=== PATIENT | male | born 1980 | race Caucasian/White ===

== ENCOUNTER 2017-01-04 12:03 | Emergency (ER) | payer OTHER ==
[2017-01-04 12:17] VITALS: BP 119/93; PULSE 104; RESP 18; TEMP 97.9; O2SAT 94
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
== END 2017-01-04 12:35 | disposition home or self-care (01) ==
LOC: CED 12:03
DX: S16.1XXA Strain of muscle, fascia and tendon at neck level, initial encounter (principal); E10.9 Type 1 diabetes mellitus without complications; F17.200 Nicotine dependence, unspecified, uncomplicated; V49.40XA Driver injured in collision with unspecified motor vehicles in traffic accident, initial encounter; Y92.410 Unspecified street and highway as the place of occurrence of the external cause; Y99.8 Other external cause status; Y93.89 Activity, other specified